=== PATIENT | male | born 1985 ===

== ENCOUNTER 2019-07-02 09:22 | Inpatient (IN) ==
[2019-07-02] MEDS ORDERED: Ipratropium/Albuterol Neb 3 ML IH ONE ×2 (09:34→10:24)
[2019-07-02 09:46] LABS: Basophils % 0.4 %; Eosinophils # 0.1 K/mcL (0.0-0.6); Eosinophils % 0.7 %; Hematocrit 36.7 % (37.5-50.1); Hemoglobin 12.6 g/dL (12.9-16.9); Immature Granulocytes % 0.3 % (0-4); Lymphocytes # 1.1 K/mcL (0.6-4.6); Lymphocytes % 10.1 %; Mean Corpuscular HGB Conc 34.3 g/dL (31.6-35.5); Mean Corpuscular Hemoglobin 28.9 pg (28.0-33.3); Mean Corpuscular Volume 84.2 fL (83.0-100.0); Mean Platelet Volume 9.4 fL (9.4-12.4); Monocytes # 2.7 K/mcL (0.0-1.3); Monocytes % 25.8 %; Neutrophils # 6.6 K/mcL (1.6-8.9); Platelet Count 154 K/mcL (140-400); Red Blood Count 4.36 M/mcL (4.19-5.50); Red Cell Distribution Width 12.4 % (11.5-14.5); Segmented Neutrophils % 62.7 %; White Blood Count 10.5 K/mcL (4.3-11.1)
[2019-07-02 09:47] LABS: Bilirubin,Urine Negative (Negative); Blood,Urine Large (Negative); Clarity,Urine Slightly Cloudy (Clear); Color,Urine Yellow (Yellow); Glucose,Urine (UA) Normal (Normal); Ketones,Urine Trace mg/dL (Negative); Leukocyte Esterase,Urine Moderate (Negative); Nitrite,Urine Positive (Negative); PH,Urine 6.5 pH Units (5.0-8.0); Protein,Urine 100 mg/dL (Neg-Trace); Specific Gravity,Urine 1.015 (1.010-1.025); Urobilinogen,Urine >=8.0 mg/dL (Normal)
[2019-07-02 09:54] LABS: RBC,Urine TNTC per hpf (0-3); WBC,Urine 30-50 per hpf (0-3)
[2019-07-02 09:56] LABS: Bacteria,Urine Moderate per hpf (None-Few); Mucus,Urine Few per lpf (Few); Squamous Epithelial Cell,Urine Moderate per lpf (None-Few)
[2019-07-02 10:02] LABS: Alanine Aminotransferase 142 Units/L (7-52); Albumin 3.7 g/dL (3.5-5.7); Alkaline Phosphatase 176 Units/L (34-104); Aspartate Amino Transferase 117 Units/L (13-39); BUN/Creatinine Ratio 14 (6-26); Bilirubin,Total 0.6 mg/dL (0.3-1.0); Blood Urea Nitrogen 11 mg/dL (6-20); Calcium 9.2 mg/dL (8.6-10.3); Carbon Dioxide 28 mEq/L (23-29); Chloride 97 mEq/L (98-107); Globulin 3.7 g/dL (2.4-3.5); Glucose 131 mg/dL (70-105); Osmolality,Calculated 273 (280-300); Potassium 3.8 mEq/L (3.5-5.1); Sodium 131 mEq/L (136-145); Total Protein 7.4 g/dL (6.4-8.9); eGFR For African Americans > 60 (> 60); eGFR For Non-African Americans > 60 (> 60)
[2019-07-02] MEDS ORDERED: levoFLOXacin 750 MG/150 ML 750 MG/150 ML BAG IVPB ONE (10:04)
[2019-07-02 10:08] LABS: Platelet Estimate Normal (Normal)
[2019-07-02 10:11] LABS: Macrocytosis Present (Not Present)
[2019-07-02] MEDS ORDERED: Piperacillin/Tazobactam 3.375 GM in 0.9 % Sodium Chloride Mini Bag 100 ML IVPB ONE (10:55)
[2019-07-02] MEDS ORDERED: Acetaminophen 325 MG TABLET PO PRN ×2 (13:17→22:13)
[2019-07-02] MEDS: 0.9 % Sodium Chloride 1,000 ML IVC SCH ×3 (13:51→23:06)
[2019-07-02] MEDS ORDERED: diazePAM 5 MG TABLET PO SCH (21:00)
[2019-07-02] MEDS: risperiDONE 1 MG TABLET PO SCH (23:30)
[2019-07-02] MEDS: Melatonin 3 MG TABLET PO SCH (23:30)
[2019-07-02] MEDS: Lactulose Oral Soln 20 GM/30 ML UDC PO SCH (23:30)
[2019-07-02] MEDS: Divalproex (12 HR) 250 MG TABLET PO SCH (23:30)
[2019-07-02] MEDS ORDERED: Valproic Acid INJ 750 MG in 0.9 % Sodium Chloride 100 ML IVPB PRN (23:56)
[2019-07-03] MEDS: risperiDONE 1 MG TABLET PO SCH ×2 (09:25→09:26)
[2019-07-03] MEDS: Divalproex (12 HR) 250 MG TABLET PO SCH ×2 (09:26→21:13)
[2019-07-03] MEDS: diazePAM 10 MG TABLET PO SCH ×2 (09:26→21:14)
[2019-07-03] MEDS: Cholecalciferol (D-3) 1,000 UNIT (25MCG) TABLET PO SCH (09:26)
[2019-07-03] MEDS: Piperacillin/Tazobactam 3.375 GM in 0.9 % Sodium Chloride Mini Bag 100 ML IVPB SCH ×3 (09:27→23:12)
[2019-07-03] MEDS: Lactulose Oral Soln 20 GM/30 ML UDC PO SCH ×3 (09:27→21:16)
[2019-07-03] MEDS: *HR* Enoxaparin 30 MG/0.3 ML SYRINGE SQ SCH (09:39)
[2019-07-03] MEDS: 0.9 % Sodium Chloride 1,000 ML IVC SCH (09:40)
[2019-07-03] MEDS: Famotidine 20 MG TABLET PO SCH (09:46)
[2019-07-03 11:16] LABS: Enterococcus by PCR Not Detected (Not Detect); mecA Methicillin-Resist Gene Not Detected (Not Detect)
[2019-07-03 11:17] LABS: Acinetobacter baumannii by PCR Not Detected (Not Detect); Candida albicans by PCR Not Detected (Not Detect); Candida glabrata by PCR Not Detected (Not Detect); Candida krusei by PCR Not Detected (Not Detect); Candida parapsilosis by PCR Not Detected (Not Detect); Candida tropicalis by PCR Not Detected (Not Detect); Enterobacter cloacae Cmplx PCR Not Detected (Not Detect); Enterobacteriaceae by PCR Not Detected (Not Detect); Escherichia coli by PCR Not Detected (Not Detect); Klebsiella oxytoca by PCR Not Detected (Not Detect); Klebsiella pneumoniae by PCR Not Detected (Not Detect); Proteus by PCR Not Detected (Not Detect); Pseudomonas aeruginosa by PCR Not Detected (Not Detect); Serratia marcescens by PCR Not Detected (Not Detect); Staphylococcus aureus by PCR Not Detected (Not Detect); Staphylococcus by PCR DETECTED (Not Detect); Streptococcus agalactiae(B)PCR Not Detected (Not Detect); Streptococcus by PCR Not Detected (Not Detect); Streptococcus pneumoniae PCR Not Detected (Not Detect); Streptococcus pyogenes (A) PCR Not Detected (Not Detect)
[2019-07-03 12:04] LABS: Basophils # 0.1 K/mcL (0.0-0.2); Basophils % 0.5 %; Eosinophils # 0.2 K/mcL (0.0-0.6); Eosinophils % 2.3 %; Hematocrit 36.5 % (37.5-50.1); Hemoglobin 12.5 g/dL (12.9-16.9); Immature Granulocytes % 0.7 % (0-4); Lymphocytes # 1.8 K/mcL (0.6-4.6); Lymphocytes % 17.5 %; Mean Corpuscular HGB Conc 34.2 g/dL (31.6-35.5); Mean Corpuscular Hemoglobin 29.3 pg (28.0-33.3); Mean Corpuscular Volume 85.5 fL (83.0-100.0); Monocytes # 2.4 K/mcL (0.0-1.3); Monocytes % 24.1 %; Neutrophils # 5.5 K/mcL (1.6-8.9); Platelet Count 186 K/mcL (140-400); Red Blood Count 4.27 M/mcL (4.19-5.50); Red Cell Distribution Width 12.6 % (11.5-14.5); Segmented Neutrophils % 54.9 %
[2019-07-03 12:36] LABS: BUN/Creatinine Ratio 15 (6-26); Blood Urea Nitrogen 11 mg/dL (6-20); Calcium 9.1 mg/dL (8.6-10.3); Carbon Dioxide 27 mEq/L (23-29); Chloride 100 mEq/L (98-107); Glucose 109 mg/dL (70-105); Large Platelets Present (Not Present); Osmolality,Calculated 276 (280-300); Potassium 4.4 mEq/L (3.5-5.1); Sodium 133 mEq/L (136-145); eGFR For African Americans > 60 (> 60); eGFR For Non-African Americans > 60 (> 60)
[2019-07-03 12:38] LABS: Platelet Estimate Normal (Normal)
[2019-07-03] MEDS ORDERED: Vancomycin 500 MG in 0.9 % Sodium Chloride Mini Bag 100 ML IVPB ONE (13:30)
[2019-07-03] MEDS: Melatonin 3 MG TABLET PO SCH (21:14)
[2019-07-04 05:40] LABS: Basophils # 0.1 K/mcL (0.0-0.2); Basophils % 0.7 %; Eosinophils # 0.3 K/mcL (0.0-0.6); Eosinophils % 4.1 %; Hematocrit 37.1 % (37.5-50.1); Hemoglobin 12.5 g/dL (12.9-16.9); Immature Granulocytes % 0.6 % (0-4); Lymphocytes # 2.1 K/mcL (0.6-4.6); Mean Corpuscular HGB Conc 33.7 g/dL (31.6-35.5); Mean Corpuscular Volume 86.1 fL (83.0-100.0); Monocytes # 1.9 K/mcL (0.0-1.3); Monocytes % 22.9 %; Neutrophils # 3.9 K/mcL (1.6-8.9); Platelet Count 227 K/mcL (140-400); Red Blood Count 4.31 M/mcL (4.19-5.50); Red Cell Distribution Width 12.6 % (11.5-14.5); Segmented Neutrophils % 46.7 %; White Blood Count 8.3 K/mcL (4.3-11.1)
[2019-07-04 05:56] LABS: BUN/Creatinine Ratio 14 (6-26); Blood Urea Nitrogen 12 mg/dL (6-20); Carbon Dioxide 28 mEq/L (23-29); Chloride 100 mEq/L (98-107); Glucose 94 mg/dL (70-105); Osmolality,Calculated 276 (280-300); Potassium 4.6 mEq/L (3.5-5.1); Sodium 133 mEq/L (136-145); eGFR For African Americans > 60 (> 60); eGFR For Non-African Americans > 60 (> 60)
[2019-07-04] MEDS: *HR* Enoxaparin 30 MG/0.3 ML SYRINGE SQ SCH (06:48)
[2019-07-04] MEDS: Piperacillin/Tazobactam 3.375 GM in 0.9 % Sodium Chloride Mini Bag 100 ML IVPB SCH ×3 (08:45→23:39)
[2019-07-04] MEDS: Cholecalciferol (D-3) 1,000 UNIT (25MCG) TABLET PO SCH (11:36)
[2019-07-04] MEDS: diazePAM 10 MG TABLET PO SCH ×2 (11:36→20:07)
[2019-07-04] MEDS: Lactulose Oral Soln 20 GM/30 ML UDC PO SCH ×3 (11:36→20:07)
[2019-07-04] MEDS: Famotidine 20 MG TABLET PO SCH (11:36)
[2019-07-04] MEDS: risperiDONE 1 MG TABLET PO SCH ×2 (11:36→20:07)
[2019-07-04] MEDS: Divalproex (12 HR) 250 MG TABLET PO SCH ×2 (11:36→20:07)
[2019-07-04] MEDS: Melatonin 3 MG TABLET PO SCH (20:07)
[2019-07-05] MEDS: *HR* Enoxaparin 30 MG/0.3 ML SYRINGE SQ SCH (06:52)
[2019-07-05] MEDS ORDERED: Ketoconazole Shampoo 120 ML BOTTLE TP SCH (09:00)
[2019-07-05] MEDS: diazePAM 10 MG TABLET PO SCH ×2 (09:25→20:02)
[2019-07-05] MEDS: Lactulose Oral Soln 20 GM/30 ML UDC PO SCH ×3 (09:26→20:03)
[2019-07-05] MEDS: Piperacillin/Tazobactam 3.375 GM in 0.9 % Sodium Chloride Mini Bag 100 ML IVPB SCH ×3 (09:26→23:23)
[2019-07-05] MEDS: risperiDONE 1 MG TABLET PO SCH ×2 (09:26→20:02)
[2019-07-05] MEDS: Divalproex (12 HR) 250 MG TABLET PO SCH ×2 (09:26→20:00)
[2019-07-05] MEDS: Cholecalciferol (D-3) 1,000 UNIT (25MCG) TABLET PO SCH (09:28)
[2019-07-05] MEDS: Famotidine 20 MG TABLET PO SCH (09:28)
[2019-07-05] MEDS ORDERED: Vancomycin 1,000 MG VIAL ONE (15:57)
[2019-07-05] MEDS: Melatonin 3 MG TABLET PO SCH (20:02)
[2019-07-06] MEDS: *HR* Enoxaparin 30 MG/0.3 ML SYRINGE SQ SCH (06:04)
[2019-07-06] MEDS: 0.9 % Sodium Chloride 1,000 ML IVC SCH (07:44)
[2019-07-06 08:51] LABS: Basophils # 0.1 K/mcL (0.0-0.2); Eosinophils # 0.4 K/mcL (0.0-0.6); Hemoglobin 13.1 g/dL (12.9-16.9); Immature Granulocytes % 1.1 % (0-4); Lymphocytes # 2.1 K/mcL (0.6-4.6); Lymphocytes % 29.4 %; Mean Corpuscular HGB Conc 32.8 g/dL (31.6-35.5); Mean Corpuscular Hemoglobin 28.4 pg (28.0-33.3); Mean Corpuscular Volume 86.8 fL (83.0-100.0); Monocytes # 1.3 K/mcL (0.0-1.3); Monocytes % 18.1 %; Neutrophils # 3.2 K/mcL (1.6-8.9); Platelet Count 325 K/mcL (140-400); Red Blood Count 4.61 M/mcL (4.19-5.50); Red Cell Distribution Width 12.5 % (11.5-14.5); Segmented Neutrophils % 44.4 %; White Blood Count 7.1 K/mcL (4.3-11.1)
[2019-07-06 08:59] LABS: Platelet Estimate Normal (Normal)
[2019-07-06 09:02] LABS: BUN/Creatinine Ratio 14 (6-26); Blood Urea Nitrogen 10 mg/dL (6-20); Calcium 9.1 mg/dL (8.6-10.3); Carbon Dioxide 29 mEq/L (23-29); Chloride 103 mEq/L (98-107); Glucose 104 mg/dL (70-105); Osmolality,Calculated 283 (280-300); Potassium 4.4 mEq/L (3.5-5.1); Sodium 137 mEq/L (136-145); eGFR For African Americans > 60 (> 60); eGFR For Non-African Americans > 60 (> 60)
[2019-07-06] MEDS: Cholecalciferol (D-3) 1,000 UNIT (25MCG) TABLET PO SCH (09:35)
[2019-07-06] MEDS: risperiDONE 1 MG TABLET PO SCH ×2 (09:35→20:14)
[2019-07-06] MEDS: Divalproex (12 HR) 250 MG TABLET PO SCH ×2 (09:35→20:13)
[2019-07-06] MEDS: Lactulose Oral Soln 20 GM/30 ML UDC PO SCH ×4 (09:36→20:16)
[2019-07-06] MEDS: Piperacillin/Tazobactam 3.375 GM in 0.9 % Sodium Chloride Mini Bag 100 ML IVPB SCH ×3 (09:36→23:09)
[2019-07-06] MEDS: diazePAM 10 MG TABLET PO SCH ×2 (09:37→11:26)
[2019-07-06] MEDS: Famotidine 20 MG TABLET PO SCH (09:38)
[2019-07-06] MEDS ORDERED: Vancomycin 500 MG in 0.9 % Sodium Chloride Mini Bag 100 ML IVPB ONE (11:00)
[2019-07-06] MEDS ORDERED: diazePAM 5 MG TABLET PO PRN ×2 (17:54→18:00)
[2019-07-06] MEDS ORDERED: diazePAM 5 MG TABLET PO SCH (18:00)
[2019-07-06] MEDS: Melatonin 3 MG TABLET PO SCH (20:16)
[2019-07-07] MEDS ORDERED: *HR* Enoxaparin 40 MG/0.4 ML SYRINGE SQ SCH (06:00)
[2019-07-07] MEDS: Divalproex (12 HR) 250 MG TABLET PO SCH (08:25)
[2019-07-07] MEDS: risperiDONE 1 MG TABLET PO SCH (08:25)
[2019-07-07] MEDS: Cholecalciferol (D-3) 1,000 UNIT (25MCG) TABLET PO SCH (08:25)
[2019-07-07] MEDS: Lactulose Oral Soln 20 GM/30 ML UDC PO SCH (08:25)
[2019-07-07] MEDS: Famotidine 20 MG TABLET PO SCH (08:25)
[2019-07-07] MEDS: Piperacillin/Tazobactam 3.375 GM in 0.9 % Sodium Chloride Mini Bag 100 ML IVPB SCH (08:26)
[2019-07-07 11:21] VITALS: BP 105/69
[2019-07-07] MEDS ORDERED: Aminoglycoside Consult 1 EACH MC ONE (14:04)
== END 2019-07-07 14:05 | disposition other institution (70) | DRG 872 ==
LOC: EMEROOGRE 09:22 → INPGRE 11:50
PROVIDERS: ADMIT Family Medicine; ATTEND Family Medicine